=== PATIENT | male | born 1945 | race Caucasian/White ===

== ENCOUNTER → 2022-05-22 | Outpatient (CLI) | payer MEDICARE, OTHER ==
--- NOTE | 2022-05-22 09:49 | XR ---
EXAMINATION TYPE: XR KUB DATE OF EXAM: 05/22/2022 HISTORY: Pain Comparison: None.Single KUB is submitted for interpretation. Findings: Right renal calculi: None Visualized. Right ureteral calculi: 5 mm calcific density overlying the mid right sacrum. Correlate for ureteral calculus. Left renal calculi: None Visualized. Left ureteral calculi: None Visualized. Pelvic calcifications: None Visualized. Bowel gas pattern is unremarkable. No free air. No mass effects. IMPRESSION: 1. 5 mm calcific density overlying the mid right sacrum. Correlate for ureteral calculus.
== END | disposition home or self-care (01) ==
LOC: RADXRMAIN 09:28
PROVIDERS: ATTEND Urology
DX: N20.1 Calculus of ureter (principal)
CPT/HCPCS: 74018

== ENCOUNTER 2022-05-28 10:38 | Day surgery (SDC) | payer MEDICARE, OTHER ==
--- NOTE | 2022-05-27 06:42 | P.GSHP ---
History of Present Illness H&P Date: 05/27/22 Chief Complaint: Right-sided abdominal pain The patient is a 77-year-old white male with a history of urolithiasis. He experienced right-sided abdominal pain in April, but it intensified early this month. A CT scan performed on May 04 showed moderate right hydronephrosis due to a 5 x 6 mm right midureteral calculus. KUB x-ray on May 22 revealed that the calculus was not migrating distally. He was offered the options of continued medical expulsion therapy, extracorporal shockwave lithotripsy (ESWL), and ureteroscopy with laser lithotripsy. The pros, cons, and risks of each approach were reviewed in detail. He has elected to undergo ureteroscopic removal of the calculus. - Constitutional Constitutional: Reports chills, Reports fever - Gastrointestinal Gastrointestinal: Reports abdominal pain, Reports nausea, Reports vomiting - Genitourinary (Male) Genitourinary: Reports flank pain, Reports kidney stones, Denies dysuria, Denies hematuria Past Medical History Past Medical History: Cancer, COPD, GERD/Reflux, Osteoarthritis (OA), Sleep Apnea/CPAP/BIPAP Additional Past Medical History / Comment(s): sleep study "normal" per pt,prostate cancer radiation tx x44 ended 11/20, kidney stones History of Any Multi-Drug Resistant Organisms: None Reported Past Surgical History: Joint Replacement, Orthopedic Surgery, Prostate Surgery Additional Past Surgical History / Comment(s): roseline hip replacement, L knee arthoscopy, distant hand and foot surgery, prostatectomy Past Anesthesia/Blood Transfusion Reactions: No Reported Reaction Past Psychological History: No Psychological Hx Reported Smoking Status: Former smoker Past Alcohol Use History: Daily Additional Past Alcohol Use History / Comment(s): 1ppk/day x 20yrs quit 20 yrs ago, glass of wine daily Past Drug Use History: None Reported - Past Family History Mother History Unknown: Yes Father Family Medical History: No Reported History Medications and Allergies Home Medications Medication Instructions Recorded Confirmed Type Atorvastatin [Lipitor] 20 mg PO HS 05/24/22 05/24/22 History Dexlansoprazole [Dexilant] 60 mg PO HS 05/24/22 05/24/22 History Levothyroxine Sodium [Synthroid] 112 mcg PO DAILY 05/24/22 05/24/22 History Losartan [Cozaar] 50 mg PO HS 05/24/22 05/24/22 History Tamsulosin HCl [Flomax] 0.4 mg PO BID 05/24/22 05/24/22 History Allergies Allergy/AdvReac Type Severity Reaction Status Date / Time cephalexin [From Keflex] AdvReac Rash/Hives Verified 05/24/22 09:07 Penicillins AdvReac Rash/Hives Verified 05/24/22 09:07 Surgical - Exam - General well developed, well nourished, no distress - Neck no masses, trachea midline - Respiratory normal respiratory effort - Abdomen Abdomen: soft, non tender, no guarding, no rigid, no rebound - Genitourinary normal penis with no external lesions, testicles non-tender - Psychiatric oriented to time, oriented to person, oriented to place, speech is normal, memory intact Results - Imaging Abdominal x-ray: report reviewed, image reviewed CT scan - abdomen: report reviewed, image reviewed Assessment and Plan (1) Calculus of ureter Status: Acute Code(s): N20.1 - CALCULUS OF URETER SNOMED Code(s): 59588838 Plan: Cystoscopy, right ureteroscopy with Holmium laser lithotripsy and possible stone basketing, right ureteral stent insertion. The procedure has been reviewed in detail with the patient and his . They have been made aware of potential risks, which include anesthesia, bleeding, infection, inability to successfully remove the calculus, and ureteral injury.
[~2022-05-28 10:38] MED LIST: DEXAMETHASONE SOD PHOSPHATE 4 MG/ML 1 ML VIAL IV ONE; HYDROmorphone 0.5 MG/0.5 ML SYRINGE IVP PRN; LEVOFLOXACIN 500MG-D5W PMX 500 MG in DEXTROSE/WATER 1 100ML.BAG IVPB PRN; ONDANSETRON 4 MG/2 ML VIAL IVP ONE
--- NOTE | 2022-05-28 10:58 | XR ---
EXAMINATION TYPE: XR KUB DATE OF EXAM: 05/28/2022 Comparison: 05/22/2022 Clinical History: 77-year-old male preoperative exam for cystoscopy and management of right-sided kid geraldine stone, OR, UPON ARRIVAL Findings: A segment of nondilated colon in the right mid abdomen measuring up to 6.5 cm. Gaseous small bowel lo ops are present throughout. No significant stool burden. 6 mm calcification right side of the pelvis remains unchanged. Otherwise, bowel content partially obs cures the renal shadows. Bilateral partially visualized total hip arthroplasties. Heterotopic ossification left greater than r ight. Impression: Gassy bowel, probably transient. Follow-up as clinically indicated. 6 mm calcification in the right side of the pelvis remains.
[2022-05-28] MEDS: LACTATED RINGERS 1,000 ML IV SCH ×3 (11:19→12:36)
[2022-05-28] MEDS ORDERED: MIDAZOLAM 2 MG/2 ML VIAL ONE (12:30)
[2022-05-28] MEDS ORDERED: KETOROLAC 15 MG/ML 1 ML VIAL ONE (12:30)
[2022-05-28] MEDS ORDERED: NEOSTIGMINE 1 MG/ML 10 ML VIAL ONE (12:30)
[2022-05-28] MEDS ORDERED: ROCURONIUM 10 MG/ML (5 ML VIAL) IV ONE (12:30)
[2022-05-28] MEDS ORDERED: LIDOCAINE 2% INJ 20 MG/ML (2 ML VIAL) ONE (12:30)
[2022-05-28] MEDS ORDERED: fentaNYL (PF) 50 MCG/ML 2 ML AMP ONE (12:30)
[2022-05-28] MEDS ORDERED: PROPOFOL 10 MG/ML 20 ML VIAL IV ONE (12:30)
[2022-05-28] MEDS ORDERED: GLYCOPYRROLATE 0.2 MG/ML 2 ML VIAL ONE (12:30)
[2022-05-28] MEDS ORDERED: SUCCINYLCHOLINE CHLORIDE 200 MG/10 ML VIAL IV ONE (12:30)
[2022-05-28] MEDS ORDERED: LACTATED RINGERS 1,000 ML IV ONE (13:20)
[2022-05-28 13:42] VITALS: TEMP 98
[2022-05-28 13:52] VITALS: RESP 16
[2022-05-28] MEDS ORDERED: LABETALOL 5 MG/ML VIAL MDV IVP ONE ×2 (14:17→14:30)
--- NOTE | 2022-05-28 15:36 | P.OP ---
Date of Procedure: 05/28/22 Preoperative Diagnosis: Right ureteral calculus Postoperative Diagnosis: Same Procedure(s) Performed: Cystoscopy, right ureteroscopy with Holmium laser lithotripsy Anesthesia: BRITTANY Surgeon: Alexander Joseph Estimated Blood Loss (ml): 5 IV fluids (ml): 650 Pathology: other (Calculus fragments, sent for chemical analysis) Condition: stable Disposition: PACU Indications for Procedure: The patient is a 77-year-old white male with a history of urolithiasis. He experienced right-sided abdominal pain in April, but it intensified early this month. A CT scan performed on May 04 showed moderate right hydronephrosis due to a 5 x 6 mm right midureteral calculus. KUB x-ray on May 22 revealed that the calculus was not migrating distally. He was offered the options of continued medical expulsion therapy, extracorporal shockwave lithotripsy (ESWL), and ureteroscopy with laser lithotripsy. The pros, cons, and risks of each approach were reviewed in detail. He has elected to undergo ureteroscopic removal of the calculus. Operative Findings: 6 mm right distal ureteral calculus, fragmented completely. Description of Procedure: The patient was taken to the operating room and placed in the dorsolithotomy position, with legs supported in Favian stirrups. The external genitalia was prepped and draped sterilely. The 30 lens was used to introduce the 21-[place] Guajardo cystoscopic sheath through the urethra and into the bladder under direct vision. The prostatic urethra showed evidence of mild lateral lobe enlargement. The bladder was examined in its entirety. Both ureteral orifices were normal anatomic location and configuration, and clear urine effluxed from both. No tumors or foreign bodies were seen. The Guajardo semirigid ureteroscope was advanced into the bladder, and the right ureteral orifice was cannulated. The ureteroscope was slowly advanced under direct vision, up to the calculus. The 272 micron Holmium laser probe was passed through the ureteroscope, and lith otripsy was performed. As calculus fragments broke away, they passed distally into the bladder. Once this was completed, the ureter was inspected. There were no residual calculus fragments within the ureter, and no evidence of ureteral trauma. After removing the ureteroscope, the cystoscope was passed into the bladder. The calculus fragments were retrieved from the bladder and sent for chemical analysis. The bladder was emptied and the cystoscope removed. The patient tolerated the procedure well and was taken to the recovery room in stable condition. PATRICIA ROCKS Report: Procedure Acuity: Semi-Urgent Stone Size and Location: 5 x 6 mm, right distal ureter Ureteral Dilation: No Ureteral Access Sheath Used: No Stone Sent for Analysis: Yes All Stones/Fragments Were Removed with a Basket: No Complications: No Preoperative Antibiotics Given: Yes Stent Placed: No Discharge Medications: Tamsulosin
[2022-05-28 15:46] VITALS: BP 168/84; PULSE 68
== END 2022-05-28 16:01 | disposition home or self-care (01) ==
LOC: OR 10:38
PROVIDERS: ATTEND Urology
DX: N13.2 Hydronephrosis with renal and ureteral calculous obstruction (principal); J44.9 Chronic obstructive pulmonary disease, unspecified; K21.9 Gastro-esophageal reflux disease without esophagitis; I10 Essential (primary) hypertension; E78.5 Hyperlipidemia, unspecified; M48.02 Spinal stenosis, cervical region; E03.9 Hypothyroidism, unspecified; M19.90 Unspecified osteoarthritis, unspecified site; K58.9 Irritable bowel syndrome, unspecified; G47.30 Sleep apnea, unspecified; F10.20 Alcohol dependence, uncomplicated; Z85.46 Personal history of malignant neoplasm of prostate; Z96.643 Presence of artificial hip joint, bilateral; Z96.652 Presence of left artificial knee joint; Z87.442 Personal history of urinary calculi; Z87.890 Personal history of sex reassignment; Z98.890 Other specified postprocedural states; Z87.891 Personal history of nicotine dependence; Z79.02 Long term (current) use of antithrombotics/antiplatelets; Z79.899 Other long term (current) drug therapy; Z79.890 Hormone replacement therapy; Z79.83 Long term (current) use of bisphosphonates; Z88.0 Allergy status to penicillin; Z88.1 Allergy status to other antibiotic agents
CPT/HCPCS: 52353; 82365; 74018; C1758; J2250; J0330; J1100; J2710; J2405; J1956; J3010; J1885; J2704; J1170; J2001

== ENCOUNTER → 2022-09-19 | Outpatient (CLI) | payer MEDICARE, OTHER ==
--- NOTE | 2022-09-19 12:49 | US ---
EXAMINATION TYPE: US kidneys/renal and bladder DATE OF EXAM: 09/19/2022 COMPARISON: NONE CLINICAL HISTORY: N132 HYDRONEPHROSIS W/ CALCULUS. Hx of stones EXAM MEASUREMENTS: Right Kidney: 9.7 x 4.8 x 3.6 cm Left Kidney: 9.8 x 4.6 x 3.7 cm Right Kidney: Hypoechoic area mid pole measures 1.2 cm. May be a small exophytic cyst. Left Kidney: No hydronephrosis or masses seen Bladder: anechoic Bilateral Jets seen: no IMPRESSION: 1. Left mid renal cyst.
== END | disposition home or self-care (01) ==
LOC: RADUSWWP 12:03
PROVIDERS: ATTEND Urology
DX: C61 Malignant neoplasm of prostate (principal); N13.2 Hydronephrosis with renal and ureteral calculous obstruction; N28.1 Cyst of kidney, acquired
CPT/HCPCS: 76770; 84153; 84403

== ENCOUNTER → 2023-09-10 | Outpatient (CLI) | payer MEDICARE, OTHER ==
[2023-09-10 15:37] LABS: Prostate Specific Antigen 0.14 ng/mL (0.000-6.500)
== END | disposition home or self-care (01) ==
LOC: LABWHC1 08:04
PROVIDERS: ATTEND Urology
DX: C61 Malignant neoplasm of prostate (principal)
CPT/HCPCS: 36415; 84153; 84403

== ENCOUNTER → 2023-10-22 | Outpatient (CLI) | payer MEDICARE, OTHER ==
--- NOTE | 2023-10-22 21:40 | XR ---
EXAMINATION TYPE: XR KUB DATE OF EXAM: 10/22/2023 Comparison: 05/28/2022 Clinical History: 78-year-old male N23 UNSPECIFIED RENAL COLIC Findings: Gassy colon within the mid and right side of the abdomen. No significant stool burden. Bilateral tota l hip arthroplasties. Heterotopic ossification superiorly left hip unchanged. Bowel content largely o bscures the renal shadows. No dilated small bowel loops. Impression: Bowel content largely obscures the renal shadows. Gassy colon. Nonobstructive bowel gas pattern.
== END | disposition home or self-care (01) ==
LOC: RADXRMAIN 12:28
PROVIDERS: ATTEND Urology
DX: N23 Unspecified renal colic (principal); K31.89 Other diseases of stomach and duodenum
CPT/HCPCS: 74018

== ENCOUNTER → 2024-02-23 | Outpatient (CLI) | payer MEDICARE, OTHER | END | disposition home or self-care (01) | LOC: LABWHC1 13:13 | PROVIDERS: ATTEND Urology | DX: C61 Malignant neoplasm of prostate (principal) | CPT/HCPCS: 36415; 84153 ==

== ENCOUNTER → 2024-09-09 | Outpatient (CLI) | payer MEDICARE, OTHER | END | disposition home or self-care (01) | LOC: LABWHC1 12:57 | PROVIDERS: ATTEND Urology | DX: C61 Malignant neoplasm of prostate (principal) | CPT/HCPCS: 36415; 84153 ==

== ENCOUNTER → 2024-09-30 | Outpatient (CLI) | payer MEDICARE, OTHER ==
--- NOTE | 2024-09-30 12:19 | XR ---
EXAMINATION TYPE: XR KUB DATE OF EXAM: 09/30/2024 10:12 AM COMPARISON: 10/22/2023 CLINICAL INDICATION: Male, 79 years old with history of N23 renal colic, , FINDINGS: Partially visualized bilateral total hip arthroplasties. Heterotopic ossification superiorl y left hip. Nonobstructive bowel gas pattern. Mild stool in the right side of the abdomen. Gassy, and mildly distended colon left side of the abdomen. Some additional gas seen mid abdominal small bowel loops. No abnormal dilatation. Lung bases are clear. Bowel content largely obscures the renal shadows . No definite suspicious calcification is seen. IMPRESSION: 1. Some nonspecific gassy, mildly dilated colon in the left side of the abdomen. Possibly related to an ileus. Follow-up as clinically indicated. Correlate clinically to exclude the possibility of dista l colonic obstruction. 2. No findings of small bowel obstruction. [facility], Workstation: [email or web address], 09/30/2024 12:17 PM
== END | disposition home or self-care (01) ==
LOC: RADXRMAIN 09:47
PROVIDERS: ATTEND Urology
DX: N23 Unspecified renal colic (principal); R14.3 Flatulence
CPT/HCPCS: 74018